=== PATIENT | female | born 1960 | race Caucasian/White ===

== ENCOUNTER 2019-04-28 11:39 | Outpatient (CLI) | payer OTHER ==
[~2019-04-28 11:39] MED LIST: FORTAMET1000 MG; LEVSIN/SL0.125 MG SL; NEURONTIN300 MG; PEPCID40 MG PO; SYNTHROID125 MCG
== END 2019-04-28 15:00 | disposition home or self-care (01) ==
LOC: MRI 11:39
DX: M43.16 Spondylolisthesis, lumbar region (principal)
CPT/HCPCS: 72148

== ENCOUNTER 2019-07-13 08:48 | Emergency (ER) | payer OTHER ==
[~2019-07-13] VITALS: Ht 162.6 cm; Wt 131.5 kg
[2019-07-13] MEDS ORDERED: ACTOS30 MG PO (09:00)
[2019-07-13] MEDS ORDERED: GLIMEPIRIDE4 MG PO (09:00)
[2019-07-13] MEDS ORDERED: GABAPENTIN PO (09:01)
[2019-07-13] MEDS ORDERED: SYNTHROID200 MCG PO (09:01)
== END 2019-07-13 14:40 | disposition home or self-care (01) ==
LOC: ER 08:48
DX: M54.5 Low back pain (principal)

== ENCOUNTER 2022-10-30 07:00 | Inpatient (IN) | payer OTHER ==
[~2022-10-30] VITALS: Ht 162.6 cm; Wt 128.4 kg
[~2022-10-30 07:00] MED LIST changes: +ACTOS30 MG PO; +GABAPENTIN PO; +GLIMEPIRIDE4 MG PO; +SYNTHROID200 MCG PO
[2022-10-30] MEDS ORDERED: GLUMETZA1000 MG PO (08:09)
[2022-10-30] MEDS ORDERED: GABAPEN PO (08:09)
[2022-10-30] MEDS ORDERED: SYNTHROID125 MCG PO (08:09)
[2022-10-30] MEDS ORDERED: GABAPENT PO (08:10)
[2022-10-30] MEDS ORDERED: GLIMEPIRIDE4 MG PO (08:10)
[2022-10-30] MEDS ORDERED: TRA PO (08:11)
[2022-10-30] MEDS ORDERED: ZOLOF PO (08:12)
[2022-10-30] MEDS ORDERED: LIPITOR80 MG PO (08:12)
[2022-11-05] MEDS ORDERED: GABAPENTIN400 MG (15:33)
[2022-11-05] MEDS ORDERED: GABAPENTIN800 M1 (15:33)
[2022-11-05] MEDS ORDERED: TRADJENTA5 MG (15:35)
[2022-11-05] MEDS ORDERED: SERTRALINE HCL25 MG (15:37)
[2022-11-07] MEDS ORDERED: PERCOCET 5-3251 EACH PO (12:44)
[2022-11-07] MEDS ORDERED: ELIQUIS2.5 MG PO (12:44)
[2022-11-07] MEDS ORDERED: DUI500 PO (12:44)
== END 2022-11-07 18:09 | DRG 470 ==
LOC: SURG 11-05 06:01 → O/R 11-05 06:01 → SURH 11-05 07:00 → SURG 11-05 13:18
PROVIDERS: ADMIT Orthopaedic Surgery; ATTEND Orthopaedic Surgery
PROC: 0SRC0J9 Replacement of Right Knee Joint with Synthetic Substitute, Cemented, Open Approach (ICD-10-PCS; principal; 2022-11-05 10:15)
DX: M17.11 Unilateral primary osteoarthritis, right knee (principal); D62 Acute posthemorrhagic anemia; M22.11 Recurrent subluxation of patella, right knee; E66.9 Obesity, unspecified; E11.9 Type 2 diabetes mellitus without complications; Z79.4 Long term (current) use of insulin